=== PATIENT | female | born 1985 | race Asian ===

== ENCOUNTER → 2018-04-20 | Outpatient (REF) ==
[~2018-04-20] MED LIST: AUGMENTIN400 MG/5 M PO; DEPO-MEDROL80 MG/ML IM; FLEXERIL PO; FLONASE NASAL50 MCG; MULTI FOR HER PO; NAPROSYN500 MG PO
== END | disposition home or self-care (01) | DRG 951 ==
LOC: LAB 10:32
PROVIDERS: ATTEND Family Medicine
DX: Z02.6 Encounter for examination for insurance purposes (principal)

== ENCOUNTER → 2018-05-02 | Outpatient (REF) | END | disposition home or self-care (01) | DRG 179 | LOC: DI 02:59 | PROVIDERS: ATTEND Nurse Practitioner Family | DX: R76.12 Nonspecific reaction to cell mediated immunity measurement of gamma interferon antigen response without active tuberculosis (principal) ==